=== PATIENT | male | born 1940 | race Caucasian/White ===

== ENCOUNTER 2022-08-14 17:56 | Inpatient (IN) ==
[2022-08-14 18:18] LABS: Basophils % 0.3 % (0.0-0.8); Eosinophils % 0.2 % (0.00-10.9); Hematocrit 35.4 VOL% (42.0-52.0); Hemoglobin 11.3 GM/DL (14.0-18.0); Immature Granulocytes % 0.5 %; Immature Granulocytes Absolute 0.05 #; Lymphocytes # 0.6 10*3/uL (1.4-4.0); Lymphocytes % 6.2 % (21.2-54.2); Mean Corpuscular HGB Conc 31.9 GM/DL (32-36); Mean Corpuscular Volume 91.5 FL (87-102); Mean Platelet Volume 9.7 FL (9.6-12.0); Monocytes # 1.1 10*3/uL (0.11-0.8); Neutrophils % 81.8 % (38.7-73.9); Platelet Count 207 T/CUMM (130-400); Red Blood Count 3.87 MC/CUMM (3.8-5.5); Red Cell Distribution Width 15.8 % (9.3-17.3); White Blood Count 10.3 T/CUMM (4-12)
[2022-08-14 18:48] LABS: Albumin 3.3 G/DL (3.4-5.0); Bilirubin,Total 0.5 MG/DL (0.20-1.00); Calcium 9.1 MG/DL (8.5-10.1); Osmolality,Calculated 280.8 MOS/KG (273-304); Thyroid Stimulating Hormone 0.605 uIU/ml (0.358-3.74)
[2022-08-14 18:53] LABS: PT Patient Result 11.4 SECS (10.1-12.1)
[2022-08-14] MEDS ORDERED: LEVOFLOXACIN INJ 750 MG/150 ML PREMIX IV STA (19:04)
[2022-08-14] MEDS ORDERED: ONDANSETRON 4 MG/2 ML VIAL IV PRN (20:10)
[2022-08-14] MEDS ORDERED: ACETAMINOPHEN 325 MG TABLET PO PRN (20:10)
[2022-08-14] MEDS: ENOXAPARIN 40 MG/0.4 ML SYRINGE SUBCUT SCH (20:42)
[2022-08-14] MEDS: INSULIN REGULAR 100 UNIT/ML SUBCUT SCH (20:42)
[2022-08-14 20:59] LABS: % Iron Saturation 6.4 % (18-50)
[2022-08-14 21:01] LABS: Folate 9.87 NG/ML (5.38-24.0)
[2022-08-14] MEDS: SODIUM CHLORIDE 0.45% 1,000 ML IV SCH (21:02)
[2022-08-14 21:03] LABS: Glucose,Urine (UA) Negative (Negative); Ketones,Urine Negative (Negative); Nitrite,Urine Negative (Negative); Protein,Urine >=300 mg/dL (Negative); Urine Appearance Clear (Clear); Urine Color Yellow (Yellow); Urine Specific Gravity >= 1.030 (1.001-1.035); Urine pH 5.5 (4.5-8.0)
[2022-08-14 21:04] LABS: Bilirubin,Urine Negative (Negative); Blood, Urine Trace mg/dL (Negative); Urine Urobilinogen 0.2 eU/dL (<2.0)
[2022-08-14 21:05] LABS: Amorphous Crystals,Urine Occasional /HPF (Few); Mucus,Urine Occasional /LPF (Occasional); RBC,Urine 2 /HPF (0-4)
[2022-08-15 05:43] LABS: Basophils % 0.3 % (0.0-0.8); Eosinophils % 0.1 % (0.00-10.9); Hematocrit 33.4 VOL% (42.0-52.0); Hemoglobin 10.8 GM/DL (14.0-18.0); Immature Granulocytes % 0.6 %; Immature Granulocytes Absolute 0.06 #; Lymphocytes # 0.7 10*3/uL (1.4-4.0); Lymphocytes % 7.6 % (21.2-54.2); Mean Corpuscular HGB Conc 32.3 GM/DL (32-36); Mean Corpuscular Volume 91.5 FL (87-102); Mean Platelet Volume 10.1 FL (9.6-12.0); Monocytes # 1.2 10*3/uL (0.11-0.8); Monocytes % 12.5 % (1.7-12.7); Neutrophils % 78.9 % (38.7-73.9); Platelet Count 181 T/CUMM (130-400); Red Blood Count 3.65 MC/CUMM (3.8-5.5); Red Cell Distribution Width 15.4 % (9.3-17.3); White Blood Count 9.5 T/CUMM (4-12)
[2022-08-15 06:16] LABS: Albumin 2.9 G/DL (3.4-5.0); Bilirubin,Total 0.7 MG/DL (0.20-1.00); Calcium 8.7 MG/DL (8.5-10.1); Osmolality,Calculated 280.7 MOS/KG (273-304); Potassium 4.2 MMOL/L (3.5-5.1); Thyroid Stimulating Hormone 0.619 uIU/ml (0.358-3.74); Total Protein 6.5 G/DL (6.4-8.2); VLDL Cholesterol 13.6 MG/DL
[2022-08-15] MEDS: SODIUM CHLORIDE 0.45% 1,000 ML IV SCH ×2 (06:22→20:32)
[2022-08-15] MEDS ORDERED: BACLOFEN 10 MG TABLET PO PRN (12:46)
[2022-08-15] MEDS: INSULIN REGULAR 100 UNIT/ML SUBCUT SCH ×3 (13:00→21:06)
[2022-08-15] MEDS: MEMANTINE 10 MG TABLET PO SCH (18:14)
[2022-08-15] MEDS: BENZTROPINE 1 MG TABLET PO SCH (18:14)
[2022-08-15] MEDS: TAMSULOSIN 0.4 MG CAPSULE PO SCH (18:14)
[2022-08-15] MEDS: ATORVASTATIN 40 MG TABLET PO SCH (18:14)
[2022-08-15] MEDS: QUEtiapine 25 MG TABLET PO SCH (18:14)
[2022-08-15] MEDS: FERRIC GLUCONATE COMPLEX 125 MG in SODIUM CHLORIDE 0.9% 100 ML IV SCH (18:15)
[2022-08-15] MEDS: FLUVOXAMINE 100 MG PO SCH (19:03)
[2022-08-15] MEDS ORDERED: MELATONIN 3 MG TABLET PO PRN (21:00)
[2022-08-15] MEDS: PROPRANOLOL 10 MG TABLET PO SCH (21:11)
[2022-08-15] MEDS: ENOXAPARIN 40 MG/0.4 ML SYRINGE SUBCUT SCH (21:11)
[2022-08-15] MEDS: SENNA 8.6 MG TABLET PO SCH (21:11)
[2022-08-15] MEDS: QUEtiapine 100 MG TABLET PO SCH (21:11)
[2022-08-15] MEDS: LEVOFLOXACIN INJ 750 MG/150 ML PREMIX IV SCH (21:12)
[2022-08-16] MEDS: SODIUM CHLORIDE 0.45% 1,000 ML IV SCH ×2 (01:17→09:20)
[2022-08-16] MEDS: INSULIN REGULAR 100 UNIT/ML SUBCUT SCH ×4 (07:25→21:07)
[2022-08-16] MEDS: CHOLECALCIFEROL 1,000 UNIT TABLET PO SCH (10:15)
[2022-08-16] MEDS: MAGNESIUM OXIDE 400 MG TABLET PO SCH (10:22)
[2022-08-16] MEDS: DUTASTERIDE 0.5 MG CAPSULE PO SCH (10:22)
[2022-08-16] MEDS: BENZTROPINE 1 MG TABLET PO SCH ×2 (10:22→17:43)
[2022-08-16] MEDS: PROPRANOLOL 10 MG TABLET PO SCH ×2 (10:22→21:07)
[2022-08-16] MEDS: CHOLECALCIFEROL 5,000 UNIT TABLET PO SCH (10:22)
[2022-08-16] MEDS: ASPIRIN CHEW 81 MG TABLET PO SCH (10:22)
[2022-08-16] MEDS: CLOPIDOGREL 75 MG TABLET PO SCH (10:22)
[2022-08-16] MEDS: DONEPEZIL 10 MG TABLET PO SCH (10:23)
[2022-08-16] MEDS: QUEtiapine 25 MG TABLET PO SCH ×2 (10:23→17:42)
[2022-08-16] MEDS: MEMANTINE 10 MG TABLET PO SCH ×2 (10:23→17:42)
[2022-08-16] MEDS: SENNA 8.6 MG TABLET PO SCH ×2 (10:23→21:07)
[2022-08-16] MEDS: FERRIC GLUCONATE COMPLEX 125 MG in SODIUM CHLORIDE 0.9% 100 ML IV SCH (10:23)
[2022-08-16] MEDS: ATORVASTATIN 40 MG TABLET PO SCH (17:42)
[2022-08-16] MEDS: TAMSULOSIN 0.4 MG CAPSULE PO SCH (17:43)
[2022-08-16] MEDS: FLUVOXAMINE 100 MG PO SCH (18:39)
[2022-08-16] MEDS: ENOXAPARIN 40 MG/0.4 ML SYRINGE SUBCUT SCH (21:06)
[2022-08-16] MEDS: LEVOFLOXACIN INJ 750 MG/150 ML PREMIX IV SCH (21:06)
[2022-08-16] MEDS: QUEtiapine 100 MG TABLET PO SCH (21:07)
[2022-08-17] MEDS: SODIUM CHLORIDE 0.45% 1,000 ML IV SCH (01:40)
[2022-08-17 06:31] LABS: Basophils % 0.3 % (0.0-0.8); Eosinophils # 0.1 10*3/uL (0.0-0.87); Hematocrit 31.3 VOL% (42.0-52.0); Hemoglobin 10.4 GM/DL (14.0-18.0); Immature Granulocytes % 0.6 %; Immature Granulocytes Absolute 0.04 #; Lymphocytes # 0.5 10*3/uL (1.4-4.0); Lymphocytes % 7.5 % (21.2-54.2); Mean Corpuscular HGB Conc 33.2 GM/DL (32-36); Mean Corpuscular Volume 89.4 FL (87-102); Mean Platelet Volume 10.1 FL (9.6-12.0); Monocytes # 0.8 10*3/uL (0.11-0.8); Monocytes % 10.7 % (1.7-12.7); Neutrophils % 79.9 % (38.7-73.9); Platelet Count 164 T/CUMM (130-400); Red Cell Distribution Width 15.3 % (9.3-17.3)
[2022-08-17 06:56] LABS: Albumin 2.3 G/DL (3.4-5.0); Bilirubin,Total 0.6 MG/DL (0.20-1.00); Calcium 8.8 MG/DL (8.5-10.1); Osmolality,Calculated 270.2 MOS/KG (273-304); Potassium 3.7 MMOL/L (3.5-5.1); Total Protein 5.8 G/DL (6.4-8.2)
[2022-08-17] MEDS: FERRIC GLUCONATE COMPLEX 125 MG in SODIUM CHLORIDE 0.9% 100 ML IV SCH (10:03)
[2022-08-17] MEDS: INSULIN REGULAR 100 UNIT/ML SUBCUT SCH ×4 (10:52→20:59)
[2022-08-17] MEDS ORDERED: TUBERCULIN SKIN TEST 0.1 ML SYRINGE INTRADERM ONE (14:00)
[2022-08-17] MEDS: BENZTROPINE 1 MG TABLET PO SCH ×2 (16:31→17:57)
[2022-08-17] MEDS: QUEtiapine 25 MG TABLET PO SCH (16:31)
[2022-08-17] MEDS: MEMANTINE 10 MG TABLET PO SCH ×2 (16:31→17:57)
[2022-08-17] MEDS: PROPRANOLOL 10 MG TABLET PO SCH ×2 (16:32→21:01)
[2022-08-17] MEDS: ASPIRIN CHEW 81 MG TABLET PO SCH (16:32)
[2022-08-17] MEDS: SENNA 8.6 MG TABLET PO SCH ×2 (16:32→21:01)
[2022-08-17] MEDS: CLOPIDOGREL 75 MG TABLET PO SCH (16:32)
[2022-08-17] MEDS: DONEPEZIL 10 MG TABLET PO SCH (16:32)
[2022-08-17] MEDS: MAGNESIUM OXIDE 400 MG TABLET PO SCH (16:32)
[2022-08-17] MEDS: DUTASTERIDE 0.5 MG CAPSULE PO SCH (16:32)
[2022-08-17] MEDS: CHOLECALCIFEROL 5,000 UNIT TABLET PO SCH (16:33)
[2022-08-17] MEDS: CHOLECALCIFEROL 1,000 UNIT TABLET PO SCH (16:33)
[2022-08-17] MEDS: FLUVOXAMINE 100 MG PO SCH (17:57)
[2022-08-17] MEDS: ATORVASTATIN 40 MG TABLET PO SCH (17:57)
[2022-08-17] MEDS: TAMSULOSIN 0.4 MG CAPSULE PO SCH (17:57)
[2022-08-17] MEDS: LEVOFLOXACIN INJ 750 MG/150 ML PREMIX IV SCH (20:55)
[2022-08-17] MEDS: ENOXAPARIN 40 MG/0.4 ML SYRINGE SUBCUT SCH (20:58)
[2022-08-17] MEDS: QUEtiapine 100 MG TABLET PO SCH (21:01)
[2022-08-18] MEDS: INSULIN REGULAR 100 UNIT/ML SUBCUT SCH ×4 (08:14→21:01)
[2022-08-18] MEDS: SENNA 8.6 MG TABLET PO SCH ×2 (08:35→21:01)
[2022-08-18] MEDS: BENZTROPINE 1 MG TABLET PO SCH ×2 (08:35→17:52)
[2022-08-18] MEDS: CLOPIDOGREL 75 MG TABLET PO SCH (08:35)
[2022-08-18] MEDS: MAGNESIUM OXIDE 400 MG TABLET PO SCH (08:36)
[2022-08-18] MEDS: DUTASTERIDE 0.5 MG CAPSULE PO SCH (08:36)
[2022-08-18] MEDS: PROPRANOLOL 10 MG TABLET PO SCH ×2 (08:36→21:01)
[2022-08-18] MEDS: ASPIRIN CHEW 81 MG TABLET PO SCH (08:36)
[2022-08-18] MEDS: MEMANTINE 10 MG TABLET PO SCH ×2 (08:36→17:51)
[2022-08-18] MEDS: CHOLECALCIFEROL 5,000 UNIT TABLET PO SCH (08:36)
[2022-08-18] MEDS: QUEtiapine 25 MG TABLET PO SCH ×2 (08:36→16:06)
[2022-08-18] MEDS: DONEPEZIL 10 MG TABLET PO SCH (08:36)
[2022-08-18] MEDS: SODIUM CHLORIDE 0.45% 1,000 ML IV SCH ×2 (08:39→10:00)
[2022-08-18] MEDS: FERRIC GLUCONATE COMPLEX 125 MG in SODIUM CHLORIDE 0.9% 100 ML IV SCH (08:40)
[2022-08-18] MEDS: TAMSULOSIN 0.4 MG CAPSULE PO SCH (17:51)
[2022-08-18] MEDS: ATORVASTATIN 40 MG TABLET PO SCH (17:51)
[2022-08-18] MEDS: FLUVOXAMINE 100 MG PO SCH (17:52)
[2022-08-18] MEDS: LEVOFLOXACIN INJ 750 MG/150 ML PREMIX IV SCH (21:00)
[2022-08-18] MEDS: ENOXAPARIN 40 MG/0.4 ML SYRINGE SUBCUT SCH (21:00)
[2022-08-18] MEDS: ZINC OXIDE PASTE 113 GM TUBE TOP SCH (21:01)
[2022-08-18] MEDS: QUEtiapine 100 MG TABLET PO SCH (21:01)
[2022-08-19] MEDS: DUTASTERIDE 0.5 MG CAPSULE PO SCH (08:43)
[2022-08-19] MEDS: ASPIRIN CHEW 81 MG TABLET PO SCH (08:43)
[2022-08-19] MEDS: SENNA 8.6 MG TABLET PO SCH (08:43)
[2022-08-19] MEDS: CLOPIDOGREL 75 MG TABLET PO SCH (08:43)
[2022-08-19] MEDS: DONEPEZIL 10 MG TABLET PO SCH (08:43)
[2022-08-19] MEDS: BENZTROPINE 1 MG TABLET PO SCH (08:43)
[2022-08-19] MEDS: QUEtiapine 25 MG TABLET PO SCH (08:43)
[2022-08-19] MEDS: PROPRANOLOL 10 MG TABLET PO SCH (08:43)
[2022-08-19] MEDS: MEMANTINE 10 MG TABLET PO SCH (08:44)
[2022-08-19] MEDS: MAGNESIUM OXIDE 400 MG TABLET PO SCH (08:44)
[2022-08-19] MEDS: CHOLECALCIFEROL 5,000 UNIT TABLET PO SCH (08:44)
[2022-08-19] MEDS: INSULIN REGULAR 100 UNIT/ML SUBCUT SCH ×2 (08:50→13:19)
[2022-08-19] MEDS: ZINC OXIDE PASTE 113 GM TUBE TOP SCH (08:55)
[2022-08-19] MEDS: FERRIC GLUCONATE COMPLEX 125 MG in SODIUM CHLORIDE 0.9% 100 ML IV SCH (10:49)
[2022-08-19 11:24] VITALS: BP 152/65
== END 2022-08-19 13:05 | DRG 884 ==
LOC: N.ED 17:56 → N.3E 20:10 → INTOOBSV 20:10 → N.3E 21:55 → SUATTDRO 08-16 18:08
PROVIDERS: ADMIT Internal Medicine; ATTEND Internal Medicine Geriatric Medicine